=== PATIENT | female | born 1990 | race African-American/Black ===

== ENCOUNTER 2023-12-09 09:04 | Emergency (ER) | payer MEDICAID ==
[~2023-12-09] VITALS: Ht 149.9 cm; Wt 76.7 kg
[~2023-12-09 09:04] MED LIST: PREN-196 PO; VALA500T PO
[2023-12-09] MEDS: KETOROLAC 60 MG VIAL (30MG/ML) IM ONE (09:43)
[2023-12-09] MEDS: TETANUS/DIPHTHERIA TOXOID [ADULT] 0.5 ML VIAL IM ONE (09:46)
[2023-12-09] MEDS ORDERED: ACET-2079 PO (10:36)
[2023-12-09 10:49] VITALS: BP 125/72; PULSE 75; RESP 17; O2SAT 95
== END 2023-12-09 10:48 | disposition home or self-care (01) ==
LOC: EDH 09:04
DX: S01.511D Laceration without foreign body of lip, subsequent encounter (principal); K08.89 Other specified disorders of teeth and supporting structures; E11.9 Type 2 diabetes mellitus without complications; Z79.624 Long term (current) use of inhibitors of nucleotide synthesis; Z88.1 Allergy status to other antibiotic agents; Z88.2 Allergy status to sulfonamides; Z90.89 Acquired absence of other organs; X58.XXXD Exposure to other specified factors, subsequent encounter
CPT/HCPCS: 99284; 90714; 96372; 90471; J1885; 96374

== ENCOUNTER 2024-02-23 12:00 | Emergency (ER) | payer MEDICAID ==
[~2024-02-23] VITALS: Ht 149.9 cm; Wt 79.4 kg
[~2024-02-23 12:00] MED LIST changes: +ACET-2079 PO
[2024-02-23 12:34] LABS: BASOPHILS # (AUTO) 0.05 K/uL (0.00-0.20); BASOPHILS % (AUTO) 0.7 % (0.0-5.0); EOSINOPHILS # (AUTO) 0.16 K/uL (0.00-0.70); EOSINOPHILS % (AUTO) 2.2 % (0.0-8.0); HEMATOCRIT 38.4 % (36-48); IMMATURE GRANULOCYTE ABSOLUTE 0.04 K/uL (0-1); LYMPHOCYTES # (AUTO) 2.9 K/uL (1.0-4.8); LYMPHOCYTES % (AUTO) 38.9 % (21.0-51.0); MEAN CORPUSCULAR HEMOGLOBIN 28.5 pg (27.0-33.0); MEAN CORPUSCULAR HGB CONC 33.6 g/dL (32.0-36.0); MEAN CORPUSCULAR VOLUME 84.8 fL (79-99); MONOCYTES # (AUTO) 0.6 K/uL (0.1-1.0); MONOCYTES % (AUTO) 8.7 % (3.0-13.0); NEUTROPHILS # (AUTO) 3.6 K/uL (1.8-7.7); PLATELET COUNT (AUTO) 217 K/uL (130-400); RED BLOOD CELL COUNT(AUTO) 4.53 MIL/uL (4.00-5.50); RED CELL DISTRIBUTION WIDTH 13.4 % (11.0-15.5); WHITE BLOOD COUNT (AUTO) 7.4 K/uL (4.8-10.8)
[2024-02-23] MEDS: 0.9%NACL 1000ML 1,000 ML IV ONE (12:34)
[2024-02-23] MEDS: ondanSETRON 4MG INJ IVP ONE (12:34)
[2024-02-23 12:46] LABS: CREATININE 0.8 mg/dL (0.5-1.0); POTASSIUM 3.8 mmol/L (3.5-5.1)
[2024-02-23 13:00] LABS: APPEARANCE,URINE CLEAR (CLEAR); BILIRUBIN,URINE NEGATIVE (NEGATIVE); COLOR,URINE YELLOW (YELLOW); GLUCOSE, URINE (UA) NEGATIVE (NEGATIVE); KETONES,URINE 20 mg/dL (NEGATIVE); LEUKOCYTE ESTERASE ,URINE NEGATIVE Leu/uL (NEGATIVE); NITRATE,URINE NEGATIVE (NEGATIVE); OCCULT BLOOD,URINE NEGATIVE (NEGATIVE); PROTEIN,URINE 30 mg/dL (NEGATIVE)
[2024-02-23 13:03] LABS: HCG,QUALITATIVE URINE NEGATIVE (NEGATIVE)
[2024-02-23 13:04] LABS: ADD UA MICROSCOPIC YES
[2024-02-23 13:08] LABS: MUCUS,URINE FEW LPF (None Seen); RBC,URINE 0-1 /HPF (0-1); SQUAMOUS EPITHELIAL CELL,UR RARE /HPF (0-2)
[2024-02-23] MEDS: ketOROlac 15MG/ML VIAL (15MG/ML) IV ONE (13:28)
[2024-02-23] MEDS ORDERED: IBUP-2070 PO (14:03)
[2024-02-23] MEDS ORDERED: ONDA-243 PO (14:03)
[2024-02-23 14:24] VITALS: BP 122/67; PULSE 64; RESP 16; TEMP 98.1; O2SAT 99
[2024-02-23] MEDS ORDERED: KETO10TA2 PO (14:55)
== END 2024-02-23 14:48 | disposition home or self-care (01) ==
LOC: EDH 12:00
DX: R11.2 Nausea with vomiting, unspecified (principal); J45.909 Unspecified asthma, uncomplicated; E11.9 Type 2 diabetes mellitus without complications; Z79.624 Long term (current) use of inhibitors of nucleotide synthesis; Z88.1 Allergy status to other antibiotic agents; Z88.2 Allergy status to sulfonamides; Z90.89 Acquired absence of other organs
CPT/HCPCS: 99284; 96374; 96375; 80048; 85025; 81001; 81025; 36415; J7030; J2405; J1885